=== PATIENT | female | born 2000 | race African-American/Black ===

== ENCOUNTER 2019-10-08 17:21 | Emergency (ER) | payer OTHER, SELFPAY ==
[2019-10-08 17:30] VITALS: BP 114/63; PULSE 83; RESP 19; TEMP 37.6; O2SAT 100
--- NOTE | 2019-10-08 17:38 | ED.GENADULT ---
HPI - General Adult General Chief complaint: Urogenital-Female Stated complaint: vaginal issues Time Seen by Provider: 10/08/19 17:38 Source: patient and RN notes reviewed Mode of arrival: ambulatory Limitations: no limitations History of Present Illness HPI narrative: This is a 19 years old female presents to the office for an evaluation of possible yeast infection. Onset about three weeks ago with creamy discharge; without odor. Associated with vaginal itchiness. Her DIRECTOR CAREER SERVICES prescribed her vaginal cream for yeast; which has tried and did not seem to help. She also reports that her cervix/vaginal feels swollen when she tried to insert nuvaRing; that same day; she noticed she passed blood when she has bowel movement. Denies history of hemorroid; but admits to history of severe constipation in the past. Denies concern for STI; state she has not sex for the last two month. Denies douche or taking bathe. Admits to history of recurrent yeast infection. Related Data Home Medications Medication Instructions Recorded Confirmed etonogestrel-ethinyl estradiol 1 vag ring VAGINAL DIRECTED 10/08/19 10/08/19 Allergies Allergy/AdvReac Type Severity Reaction Status Date / Time No Known Allergies Allergy Unknown Verified 10/08/19 17:24 Review of Systems Review of Systems: Narrative: CONSTITUTIONAL: Denies fever ENT: Denies congestion or sore throat CARDIOVASCULAR: Denies chest pain RESPIRATORY: Denies dyspnea, wheezing. Reports a little cough contribute to cold weather GASTROINTESTINAL: Denies abdominal pain, nausea, vomiting, diarrhea. GENITOURINARY: Denies urinary symptoms include urgency, frequency or burning SKIN: Denies rash/vaginal lesions MUSCULOSKELETAL: Denies acute back pain NEUROLOGIC: Denies lightheaded PMFSH Past Medical History Medical History Anemia Asthma Chlamydia Constipation PID (acute pelvic inflammatory disease) Syncopal episodes Last one 2 years ago Surgical History Surgical History No history of previous surgery Social History Social History Smoking status: Never smoker Gender identity (if verbalized by the patient): Female Comments At time of signature, I agree with nursing past medical, surgical, social and family history. There is no relevant family history pertinent to the presenting complaint. Exam Narrative: Exam Narrative: GENERAL: This is a well-nourished, well-developed patient, in no apparent distress. CARDIOVASCULAR: Regular rate and rhythm without murmurs, gallops, or rubs. RESPIRATORY: Clear to auscultation. Breath sounds equal bilaterally. No wheezes, rales, or rhonchi. GASTROINTESTINAL: Abdomen soft, non-tender, nondistended. Bowel sounds are active. No hepato-splenomegaly, or palpable masses. No guarding. NEURO: awake, alert, and oriented to person, place and time. There were no obvious focal neurologic abnormalities. 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
== END 2019-10-08 18:12 | disposition home or self-care (01) ==
PROVIDERS: Emergency Provider Nurse Practitioner
DX: N76.0 Acute vaginitis (principal); J45.909 Unspecified asthma, uncomplicated
CPT/HCPCS: 99214; G0463

== ENCOUNTER 2020-04-01 11:10 | Emergency (ER) | payer SELFPAY ==
[2020-04-01 11:14] VITALS: BP 110/76; PULSE 73; RESP 12; TEMP 37.2; O2SAT 100
--- NOTE | 2020-04-01 11:18 | ED.FEMALEGU ---
HPI - Female Genitourinary General Chief complaint: FINANCIAL AID COORDINATOR Stated complaint: rash/vaginal issues Time Seen by Provider: 04/01/20 11:22 Source: patient and RN notes reviewed Mode of arrival: ambulatory Limitations: no limitations History of Present Illness HPI Narrative: 20-year-old female presents with concern for vaginal yeast infection. Also reports an area on her back that she is concern for ringworm. Report frequent yeast infections. Reports she is recently been tested for STDs, all which were negative. Denies any current concern for unprotected sex or exposure to STDs. Denies any dysuria, hematuria, frequency, urgency, back pain, fever, abdominal pain. Reports vaginal itching and white vaginal discharge. Reports a small itchy area on her back. MD elicited complaint: genital itching and other (Rash) Related Data Allergies Allergy/AdvReac Type Severity Reaction Status Date / Time No Known Allergies Allergy Unknown Verified 10/08/19 17:24 Review of Systems Review of Systems: Narrative: CONSTITUTIONAL: Denies malaise, chills, sweats, or fever. CARDIOVASCULAR: Denies chest pain, palpitations, or edema. RESPIRATORY: Denies cough or dyspnea. GASTROINTESTINAL: Denies abdominal pain, nausea, vomiting, diarrhea GENITOURINARY: Denies dysuria or hematuria. Reports vaginal itching, white vaginal discharge SKIN: Reports small rash on the mid back MUSCULOSKELETAL: Denies myalgia. NEUROLOGIC: Denies headache.PSYCHIATRIC: Denies anxiety or depression. All systems reviewed & are unremarkable except as noted in HPI and below PMFSH Social History Social History Smoking status: Never smoker Gender identity (if verbalized by the patient): Female Comments At time of signature, agree with nursing past medical, surgical, social and family history. There is no relevant family history pertinent to the presenting complaint Exam Narrative: Exam Narrative: GENERAL: Well-appearing, well-nourished, and in no acute distress. HEAD: Normocephalic EYES: PERRLA, conjunctivae clear ENT: Mucous membranes moist. NECK: Supple. CHEST: No respiratory distress. Speaks in full sentences. HEART: Regular rate and rhythm. ABDOMEN: Soft, nontender, nondistended, normal active bowel sounds, no palpable masses. SKIN: Warm, dry. Annular patch of plaque consistent with tinea noted to the mid back NEURO: Alert and oriented x3. PSYCH: Normal mood and affect : External Female Exam: other (Excoriation, thick white discharge noted) Course Course Emergency Course: Patient is aware of diagnosis, understands and agrees to treatment plan. Anticipatory guidance given. Patient agrees to follow-up as directed and is aware of reasons to seek care at the emergency department. Portions of this record may have been created with voice recognition software Vital Signs Vital signs: Vital Signs Temperature 99.0 F 04/01/20 11:14 Pulse Rate 73 04/01/20 11:14 Respiratory Rate 12 04/01/20 11:14 Blood Pressure 110/76 04/01/20 11:14 Pulse Oximetry 100 04/01/20 11:14 Temperature 99.0 F 04/01/20 11:14 Pulse Rate 73 04/01/20 11:14 Respiratory Rate 12 04/01/20 11:14 Blood Pressure 110/76 04/01/20 11:14 Pulse Oximetry 100 04/01/20 11:14 Reviewed. MDM - Female Genitourinary MDM Narrative Medical decision making narrative: Exam findings show no acute concerns or changes; patient is non-toxic appearing and is in no distress. Patient is appropriate for outpatient treatment and follow-up. Differential Diagnosis Differential diagnosis: Likely urinary tract infection, bacterial vaginosis, trichomoniasis, vaginitis and other (Candidiasis) Critical Care Time Critical Care Time Critical Care Time: No Discharge Plan Discharge Clinical Impression: Vaginal itching, Tinea corporis Patient Disposition: Home, Self-Care Condition: Stable Instructions: Tinea Corporis (ED), Yeast Infe
== END 2020-04-01 11:41 | disposition home or self-care (01) ==
PROVIDERS: Emergency Provider Nurse Practitioner
DX: B35.4 Tinea corporis (principal); N89.8 Other specified noninflammatory disorders of vagina
CPT/HCPCS: 99213; G0463

== ENCOUNTER 2021-08-03 15:11 | Emergency (ER) | payer OTHER, SELFPAY ==
[2021-08-03 15:29] VITALS: BP 110/57; PULSE 83; RESP 16; TEMP 36.4; O2SAT 100
--- NOTE | 2021-08-03 16:44 | ED.FEMALEGU ---
HPI - Female Genitourinary General Chief complaint: Urogenital-Female Stated complaint: pos yeast inf Source: patient Mode of arrival: ambulatory Limitations: no limitations History of Present Illness HPI Narrative: Patient is a 21-year-old female who presents complaining of yeast infection. She reports irritation and discharge. She reports burning with urination. She denies , denies STD exposure. She denies pelvic pain or fever. Related Data Home Medications Medication Instructions Recorded Confirmed No Home Medications 08/03/21 08/03/21 Allergies Allergy/AdvReac Type Severity Reaction Status Date / Time No Known Allergies Allergy Unknown Verified 08/03/21 15:51 Review of Systems Review of Systems: CONSTITUTIONAL: Denies fever, chills, or sweats. EYES: Denies visual changes, redness, or discharge. ENT: Denies rhinorrhea, congestion, sore throat, or otalgia. CARDIOVASCULAR: Denies chest pain, palpitations, or edema. RESPIRATORY: Denies cough or dyspnea. GASTROINTESTINAL: Denies abdominal pain, nausea, vomiting, or diarrhea. GENITOURINARY: Reports vaginal discharge and burning with urination SKIN: Denies rash or itching. MUSCULOSKELETAL: Denies back pain, joint pain, or myalgia. NEUROLOGIC: Denies headache, numbness, dizziness, or weakness. PSYCHIATRIC: Denies anxiety or depression. [facility] Past Medical History Medical History (Updated 08/03/21 @ 16:49 by BETHEL Lyons) Anemia Asthma Chlamydia Constipation PID (acute pelvic inflammatory disease) Syncopal episodes Last one 2 years ago Surgical History Surgical History No history of previous surgery Social History Social History Smoking status: Never smoker Alcohol use details: Occasionally drinks Gender identity (if verbalized by the patient): Female Comments At the time of signature, I have reviewed and agree with nursing past medical, surgical, social, and family history unless otherwise noted. Please see nursing chart for further information. There is no relevant family history pertinent to the presenting complaint. Exam Narrative: GENERAL: Well-appearing, well-nourished, and in no acute distress. HEAD: Normocephalic, atraumatic. EYES: EOMI. No redness or drainage. Conjunctiva are normal. ENT: Mucous membranes pink and moist. CHEST: No respiratory distress. HEART: Regular rate and rhythm. No murmur appreciated. Normal peripheral pulses. : Deferred per patient EXTREMITIES: Normal range of motion. No edema. SKIN: Warm, dry, no rash. NEURO: No focal deficits. Alert and oriented x3. Gait steady. PSYCH: Normal affect. No signs of depression or anxiety. Course Vital Signs Vital signs: Vital Signs Temperature 36.4 C 08/03/21 15:29 Pulse Rate 83 08/03/21 15:29 Respiratory Rate 16 08/03/21 15:29 Blood Pressure 110/57 L 08/03/21 15:29 Pulse Oximetry 100 08/03/21 15:29 Temperature 36.4 C 08/03/21 15:29 Pulse Rate 83 08/03/21 15:29 Respiratory Rate 16 08/03/21 15:29 Blood Pressure 110/57 L 08/03/21 15:29 Pulse Oximetry 100 08/03/21 15:29 Reviewed MDM - Female Genitourinary MDM Narrative Medical decision making narrative: Patient UA is negative for UTI, discussed most likely yeast infection after reporting results. Patient declined pelvic exam at this time and reports that she is not at risk for STDs. Patient is aware of the the risks of declining pelvic exam. Patient is aware of the need to follow-up with her PCP or [facility] if symptoms persist. Differential Diagnosis Differential diagnosis: Likely other (UTI, BV, STD, yeast infection) Critical Care Time Critical Care Time Critical Care Time: No Discharge Plan Discharge Clinical Impression: Vaginal yeast infection Patient Disposition: Home, Self-Care Condition: Stable Instructions: Antibiotic Form, Yeast I
== END 2021-08-03 16:50 | disposition home or self-care (01) ==
PROVIDERS: Emergency Provider Nurse Practitioner
DX: B37.3 Candidiasis of vulva and vagina (principal); J45.909 Unspecified asthma, uncomplicated
CPT/HCPCS: 81003; 99212; G0463

== ENCOUNTER 2021-08-14 16:17 | Emergency (ER) | payer OTHER, SELFPAY ==
[2021-08-14 16:24] VITALS: BP 108/71; PULSE 69; RESP 16; TEMP 36.2; O2SAT 99
--- NOTE | 2021-08-14 16:34 | ED.FEMALEGU ---
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 Reports she was treated for a yeast infection on August 03 and had improvement in symptoms, reports she had intercourse using a latex condom and afterwards began having vaginal itching again. She denies any discharge, foul odor, lesions, abdominal pain, nausea, vomiting. Reports dryness with intercourse. She reports she is in a monogamous relationship and does not have any known exposure to STDs. She reports she is only concerned because the itching returned after intercourse. MD elicited complaint: genital itching Related Data Allergies Allergy/AdvReac Type Severity Reaction Status Date / Time No Known Allergies Allergy Unknown Verified 08/14/21 16:43 Review of Systems Review of Systems: CONSTITUTIONAL: Denies malaise, chills, sweats, or fever. CARDIOVASCULAR: Denies chest pain, palpitations, or edema. RESPIRATORY: Denies cough or dyspnea. GASTROINTESTINAL: Denies abdominal pain, nausea, vomiting, diarrhea GENITOURINARY: Denies dysuria, frequency, urgency, suprapubic pressure. Denies flank pain or hematuria. Denies abnormal vaginal discharge, odor SKIN: Reports vaginal itching MUSCULOSKELETAL: Denies back pain or myalgia. All systems reviewed & are unremarkable except as noted in HPI and below PMFSH Past Medical History Medical History (Updated 08/14/21 @ 16:58 by Jessica Riley NP) Anemia Asthma Chlamydia Constipation PID (acute pelvic inflammatory disease) Syncopal episodes Last one 2 years ago Surgical History Surgical History No history of previous surgery Social History Social History Smoking status: Never smoker Alcohol use details: Occasionally drinks Gender identity (if verbalized by the patient): Female Comments At time of signature, agree with nursing past medical, surgical, social and family history. There is no relevant family history pertinent to the presenting complaint Exam Narrative: GENERAL: Well-appearing, well-nourished, and in no acute distress. HEAD: Normocephalic. EYES: PERRLA, conjunctivae clear. NECK: Supple. No lymphadenopathy CHEST: Clear to auscultation. No respiratory distress. HEART: Regular rate and rhythm. SKIN: Warm, dry, no rash. NEURO: Alert and oriented x3. PSYCH: Normal mood and affect Course Course Emergency Course: Discussed treatment options for STI testing, patient chooses to not be treated at this time because she does not have any known exposure, she understands that if any test come positive she may need to return for treatment. Patient is aware of diagnosis, understands and agrees to treatment plan. Anticipatory guidance given. Patient agrees to follow-up as directed and is aware of reasons to seek care at the emergency department. Portions of this record may have been created with voice recognition software Level of Care: Express Care Visit Vital Signs Vital signs: Vital Signs Temperature 97.2 F L 08/14/21 16:24 Pulse Rate 69 08/14/21 16:24 Respiratory Rate 16 08/14/21 16:24 Blood Pressure 108/71 08/14/21 16:24 Pulse Oximetry 99 08/14/21 16:24 Temperature 97.2 F L 08/14/21 16:24 Pulse Rate 69 08/14/21 16:24 Respiratory Rate 16 08/14/21 16:24 Blood Pressure 108/71 08/14/21 16:24 Pulse Oximetry 99 08/14/21 16:24 Reviewed. MDM - Female Genitourinary MDM Narrative Medical decision making narrative: Exam findings and UA show no acute concerns or changes; patient is non-toxic appearing and is in no distress. Patient is appropriate for outpatient treatment and follow-up. Catherinea
== END 2021-08-14 17:04 | disposition home or self-care (01) ==
PROVIDERS: Emergency Provider Nurse Practitioner
DX: N89.8 Other specified noninflammatory disorders of vagina (principal); J45.909 Unspecified asthma, uncomplicated
CPT/HCPCS: 81003; 81025; 87491; 87591; 87661; 99214; G0463

== ENCOUNTER 2024-09-08 20:35 | Emergency (ER) | payer OTHER, SELFPAY ==
--- OUTSIDE RECORDS SUMMARY | 2024-09-08 20:37 | XMS_ITS | Referral Summary ---
Author Organization [facility] Address [address] [place] [address] Care Team Providers Care Backhaul Driver Name Role Phone Mihir Panchal MD Unavailable [phone] Renee Jaeger MD Primary Care Provider [phone] Allergies No known active allergies Medications acetaminophen 500 mg capsule Take 2 capsules (1,000 mg total) by mouth every 6 (six) hours as needed for pain 60 tablet 4 Active ibuprofen (ADVIL,MOTRIN) 600 mg tabletIndicatio ns:Cramps Take 1 tablet (600 mg total) by mouth every 6 (six) hours as needed for pain 60 tablet 4 Active polyethylene glycol (MIRALAX) 17 gram/dose bulk powder Take 17 g by mouth daily as needed (constipation) 238 g 4 Active cyclobenzaprine (FLEXERIL) 5 mg tabletIndicatio ns:Encounter for routine follow-up Take 1 tablet (5 mg total) by mouth 3 (three) times a day as needed for muscle spasms 30 tablet 4 Active Additional Information Patient not taking.Reported on 04/01/2024 Active Problems Problem Noted Date Diagnosed Date Chronic idiopathic constipation 04/01/2024 Assessment & Plan (04/11/2024 9:14 AM CDT): Chronic Cont miralax Vitamin D deficiency 04/01/2024 Assessment & Plan (04/11/2024 9:14 AM CDT): Chronic Follow vit d level Well adult exam 04/01/2024 Myofascial pain 12/25/2023 Granulation tissue 12/25/2023 pain 12/04/2023 Granulation tissue at obstetrical laceration sit e 12/04/2023 care and examination 11/07/2023 Pelvic floor dysfunction 11/07/2023 depression 11/07/2023 Endometritis 10/03/2023 care following vaginal delivery 09/27 Overview (10/03/2023): # ID: Afebrile since 0100 on 10/02. #Endometritis: Readmission on 10/02. Presented with fundal tenderness and fever in [facility]. WBC 10.2. RVP negative. S/p gent/clinda for 24 hours. # Heme: EBL 350 mL. Hemodynamically stable. # CV/Pulm: Vital signs stable, within normal limits. # GI/: Tolerating PO. Voiding spontaneously. #Chronic Constipation: continue miralax daily scheduled and colace BID # Pain: Controlled with above regimen. # Post DVT prophylaxis: The patient has the following MAJOR risk factors none and the following MINOR risk factors BMI 30-39. SCDs ordered for VTE prophylaxis. # MOC: Declines s/p counseling # MOF: . No s/s mastitis on exam yesterday. Exam stable today. Discussed with Dr. Su breast care for likely clogged duct. consulted. # Disposition: Follow up tasked to [facility]. Discharge today. Excessive growth affec ting management of in third trimester 09/09/2023 Overview (09/23/2023): 08/26 US : 34w3d.1. Vertex presentation. 2. Interval growth is appropriate. EFW 88%, AC 96% Normal 3hr GTT 09/23: 3991g (94%) Counseled on large fetus and plan for induction at 39w Class 1 obesity 07/01/2023 Overview (09/24/2023): - BMI 30 at IOB visit. - S/p counseling. Plan: [x] Serial growth ultrasounds q4 weeks starting at 24 weeks, 74%ile 07/29. AC 96%, EFW 88% 08/26/23. --> on 09/23 measuring 3991g 94% Other constipation 05/06/2023 Overview (06/03/2023): - Chronic history of constipation w/ history of hemorrhoids in the past - Tried Colace this with no significant improvement - Currently having BM x1 per week that is hard in consistency at IOB visit - Slightly improved w/ miralax BID, now having bowel movement nearly daily Plan: - Continue miralax up to BID - Continue high fiber diet and dietary changes, such as prune juice - May consider additional agents at future visits if not improved Iron deficiency anemia 03/28/2023 Overview (09/23/2023): - Followed by outside hematology (Dr. Mcqueen) - Etiology likely secondary to menorrhagia per review of records. - Now s/p iron infusion cycle x3, most recently s/p IV infusion x4 on 05/01/23 - Hg 03/2023 13.4 - Hb 08/13/23 12.3 Plan: - Check CBC qtrimester, completed - Will continue follow up with hematology regarding further recommendations this . Assessment & Plan (04/11/2024 9:14 AM CDT): Chronic Recheck cbc and iron level Encounter for supervision of normal Overview (09/24/2023): *[id number]* 1st Trimester: [x] Dating Criteria: L=1 (10w3d) [x] Labs: in media tab - Rh pos, Ab neg, CBC wnl, Rubella immune, VZV immune, HIV NR, RPR NR, HepBSAg neg [x] GC/CT/Trich: neg/neg/neg [x] UCx: no growth [x] vitamins [x] Genetic Screening: LR NIPT, XX [x] CF/SMA carrier screening: declined [x] Pap: NILM 03/2022 [] EPDS: [x] ASA at 12 weeks N/A [x] DM screening: N/A [x] Feeding Preferences: benefits of discussed with patient 2nd Trimester: [x] Anatomy ultrasound: wnl on 05/21/23 [x] CBC/T&S/HIV/RPR [x] 1hr GTT (24-28wks): 165, 3 hour wnl 08/19/23 [x] Flu Shot (Apr-Jul): declined 07/01 [x] Tdap (27-36wks): declined [x] Rhogam (if Rh neg): NA [x] Childbirth classes discussed [x] education (colostrum, expected breast changes, plan for RTW) and breast pump ordered [x] Second trimester education packet 3rd Trimester: [x] CBC/HIV/RPR/T&S: 08/13/23 [x] GBS: pos 09/11, for penicillin intrapartum [] GC/CT/Trich (if indicated): [] Final discussion (S2S, Baby Friendly, LC Support, PP experience) [] Third trimester education packet Last visit: [x] Last clinic visit SVE: 50/-3 [x] IOL start agent: Pitocin, then AROM [x] Epidural: at some point [x] Consents signed: yes to procedure consent, will need blood consent signed day of Counseling: [x] Method of delivery: anticipate vaginal [] Bottle of CHG 4% and hand out provided @ 36wks (if planned) [x] Timing of delivery: IOL at 39wk [x] MOC: Declines [x] MOF: breast [] COVID-19 vaccine counseling [] education: completed in all 3 trimesters [] Electronic Development Technician: [] Car seat discussed [] PP depression counseling Assessment & Plan (09/17/2023 1:43 PM LINE CLOSER): - Discussed GBS positive and need for penicillin intrapartum - Given labor precautions and preeclampsia precautions Resolved Problems Problem Noted Date Diagnosed Date Resolved Date Bicornuate uterus 03/17/2023 07/01/2023 Overview (03/17/2023): Reported history of bicornuate uterus, but US from 2019 with no mention. US 03/12/2023 showing , in horn. Normal kidneys bilaterally. Discussed increased obstetric and risks with a uterine anomaly in . We discussed the increased risk for SAB, IUGR, malpresentation, and labor. Plan: [] Serial growth ultrasounds every 4 weeks secondary to risk of IUGR. [] Recommend close monitoring for signs and symptoms of labor as progresses. Immunizations Name Administration Dates Next Due Influenza, Unspecified 05/11/2023(Deferred: Aylin ent Refused) MMR 09/29/2023(Deferred: No longer n eeded - immune) Varicella 09/29/2023(Deferred: No longer n eeded - immune) Social History Tobacco Use Types Packs/Day Years Used Date Smoking Tobacco: Never Alcohol Use Standard Drinks/Week Comments Yes 1 (1 standard drink = 0.6 oz pur e alcohol) [facility] Mettlities Answer Date Recorded In the past 12 months has [employer], gas, oil, or water [employer] threatened to shut off services in your home? No 10/02/2023 Social Connection and Isolat ion Panel [NHANES] Answer Date Recorded In a typical week, how many times do you talk on the phone with family, friends, or neighbors? More than three times a week 10/02/2023 How often do you get togethe r with friends or relatives? More than three times a week 10/02/2023 How often do you attend chur ch or temple services? Never 10/02/2023 Do you belong to any clubs o r organizations such as rastafarian groups, unions, fraternal or athletic groups, or school groups? No 10/02/2023 How often do you attend meet ings of the clubs or organizations you belong to? Never 10/02/2023 Are you , , di vorced, , never , or living with a partner? Living with partner 10/02/2023 AUDIT-C Answer Date Recorded Q1: How often do you have a drink containing alc ohol? Monthly or less 04/01/2024 Q2: How many drinks containi ng alcohol do you have on a typical day when you are drinking? 1 or 2 04/01/2024 Frequency of Binge Drinking Not on file 03/12 Overall Financial Resource Strain (CARDIA) Answe r Date Recorded How hard is it for you to pa y for the very basics like food, housing, medical care, and heating? Not hard at all 10/02/2023 PHQ-2 Answer Date Recorded PHQ-2 Total Score (If total score is 3 or more points, staff should administer the PHQ-9) 0 04/01/2024 Hunger Vital Sign Answer Date Recorded Within the past 12 months, y ou worried that your food would run out before you got the money to buy more. Never true 11/07/19 24 Within the past 12 months, t he food you bought just didn't last and you didn't have money to get more. Never true 11/07/2023 PRAPARE - Transportation Answer Date Re corded In the past 12 months, has l ack of transportation kept you from medical appointments or from getting medications? No 09/12 In the past 12 months, has l ack of transportation kept you from meetings, work, or from getting things needed for daily living? No 10/02/2023 Housing Stability Vital Sign Answer [place] e Recorded In the last 12 months, was t here a time when you were not able to pay the mortgage or rent on time? No 10/02/2023 In the last 12 months, how many places have you lived? 1 10/02/2023 In the last 12 months, was t here a time when you did not have a steady place to sleep or slept in a mcc (including now)? No 10/02/2023 [place] Depression Scale Answer Date Recorded [place] Depression Scale Total 6 12/25/2023 The thought of harming myself has occurred to me . Never 12/25/2023 Personal Safety Answer Date Recorded Have you ever been in or are you currently in a harmful physical or emotional relationship or is someone making you feel afraid or unsafe? Denies 10/05/2023 Comments Unknown Sex and Gender Information Value Date Recorded Sex Assigned at Not on file Legal Sex Female 9:20 AM CDT Gender Identity Female 06/13/2020 2:47 PM LINE CLOSER Sexual Orientation Not on file Last Filed Vital Signs Vital Sign Reading Time Taken Comments Blood Pressure 106/68 04/01/2024 10:17 AM CDT Pulse 75 04/01/2024 10:17 AM CDT Temperature 36.3 ??C (97.4 ??F) 04/01/2024 10:17 AM C DT Respiratory Rate 18 04/01/2024 10:17 AM CDT Oxygen Saturation 99% 04/01/2024 10:17 AM CDT Inhaled Oxygen Concentration - - Weight 75.8 kg (167 lb) 04/01/2024 10:17 AM CDT Height 170.2 cm (5' 7 ) 04/01/2024 10:17 AM CDT Body Mass Index 26.16 04/01/2024 10:17 AM CDT Plan of Treatment Not on file Insurance [facility] AETNA [facility] Advance Directives For more information, please contact: [phone] * Full Code (Latest Code Status on File) Date Activated Date Inactivated Comments 10/02/2023 4:19 AM 10/03/2023 6:39 PM * Full Code Date Activated Date Inactivated Comments 09/27/2023 5:06 PM 09/29/2023 5:45 PM * Full Code Date Activated Date Inactivated Comments 09/27/2023 8:36 AM 09/27/2023 5:06 PM Full CPR in case of cardiopulmonary arrest Care Teams Backhaul Driver Relationship Specialty Start Date End Date Renee Jaeger MD [address] [facility] [address] [place] [address] PCP - General Family Medicine 04/01/24 Mihir Panchal MD [address] [facility] MEDICAL ONCOLOGY, [address] [address] Medical Oncologist/Insurance Territory Manager Hematology and Oncology 02/25/23
--- OUTSIDE RECORDS SUMMARY | 2024-09-08 20:37 | XMS_ITS | Encounter Summary ---
Author Organization [facility] Healthcare Address [address] [place] [address] Care Team Providers Care Adult Education Instructor Name Role Phone No, Physician Primary Care Provider [phone] Mihir Panchal MD Unavailable [phone] Unknown, Notinfile Primary Care Provider Unavail able Renee Jaeger MD Primary Care Provider [phone] Encounter Details Date Type Department Care Team (Late st Contact Info) Description 08/01/2020 Telephone [facility] [address] [place] [address] Lindsay Demarco RDMS Social History Tobacco Use Types Packs/Day Years Used Date Smoking Tobacco: Never Assessed Comments Unknown Sex and Gender Information Value Date Recorded Sex Assigned at Not on file Legal Sex Female 9:20 AM CDT Gender Identity Female 06/13/2020 2:47 PM YIELD LOSS INSPECTOR Sexual Orientation Not on file documented as of this encounter Plan of Treatment Not on file documented as of this encounter Visit Diagnoses Not on filedocumented in this encounter Additional Health Concerns Infection Onset Date Last Indicated Resolved Time COVID: Suspected 10/02/2023 10/02/2023 10/02/2023 3:09 AM YIELD LOSS INSPECTOR Rhino/Enterovirus 10/05/2023 10/05/2023 10/12/2023 3:05 AM YIELD LOSS INSPECTOR documented as of this encounter Care Teams Adult Education Instructor Relationship Specialty Start Date End Date No, Physician PCP - General 06/13/20 10/05/23 Unknown, Notinfile PCP - General 10/06/23 03/31/24 Renee Jaeger MD [address] [facility] [address] [place] [address] PCP - General Family Medicine 04/01/24 Mihir Panchal MD [address] [facility] MEDICAL ONCOLOGY, [facility] [address] [place] [address] Medical Oncologist/Intensive Care Unit Nurse Hematology and Oncology 02/25/23 documented as of this encounter
--- OUTSIDE RECORDS SUMMARY | 2024-09-08 20:37 | XMS_ITS | Clinical Summary ---
Author Organization [facility] Address [address] [place] [address] Care Team Providers Care Stack Supervisor Name Role Phone Mihir Panchal MD Unavailable [phone] Renee Jaeger MD Primary Care Provider [phone] Allergies No known active allergies Medications acetaminophen [...] Presented with fundal tenderness and fever in [facility]. WBC 10.2. RVP negative. S/p gent/clinda for [...] consulted. # Disposition: Follow up tasked to [facility]. Discharge today. Excessive growth affec ting [...] Encounter for supervision of normal Overview (09/24/2023): *[id number]* 1st Trimester: [x] Dating Criteria: L=1 (10w3d) [...] education: completed in all 3 trimesters [] Director Card: [] Car seat discussed [] PP depression counseling Assessment & Plan (09/17/2023 1:43 PM POST DOCTORAL FELLOW): - Discussed GBS positive and need for [...] 09/29/2023(Deferred: No longer n eeded - immune) Medical History Medical History Date Comments Asthma Family History Medical History Relation Name Comments Diabetes type I Mother Hypertension Mother Relation Name Status Comments Father Alive Mother Alive Social History Tobacco Use Types Packs/Day Years Used Date Smoking Tobacco: Never Alcohol Use Standard Drinks/Week Comments Yes 1 (1 standard drink = 0.6 oz pur e alcohol) [facility] Utilities Answer Date Recorded In the past 12 months has [employer], gas, oil, or water [employer] threatened to shut off services in your [...] week 10/02/2023 How often do you attend [facility] or sikhism services? Never 10/02/2023 Do you belong to any clubs o r organizations such as mormonism groups, unions, fraternal or athletic groups, or [...] place to sleep or slept in a skilled nursing (including now)? No 10/02/2023 [place] Depression Scale Answer Date Recorded [place] Depression Scale Total 6 12/25/2023 The thought [...] CDT Gender Identity Female 06/13/2020 2:47 PM POST DOCTORAL FELLOW Sexual Orientation Not on file Obstetrics History Para Term AB IAB SAB Ectopic Multiple Livin g Live Births 2 1 1 1 0 1 1 Date Outcome GA Total Labor Labor/2nd/3rd Weight Sex Type Anes PTL Jordyn A1 A5 Name Clin AB 2023 Term 39w 0d 6h 57m 6h 41m/0h 14m/0h 02m 3.99 kg (8 lb 12.7 oz) F Vagina l None N Livin g 7 9 Daniel hui, Zoraida vega MD Complications:None Delivery Location:[facility] Main C ampus ([facility] 58LD) Last Filed Vital Signs Vital Sign Reading [...] 04/01/2024 10:17 AM CDT Plan of Treatment Health Maintenance Due Date Last Done Comments Cervical Cancer Screening 1999 Hepatitis C Screening 1999 DTaP/Tdap/Td Vaccine (1 - Tdap) 2010 Varicella Vaccines (1 of 2 - 13+ 2-dose series) 2012 HPV Vaccines (1 - 3-dose series) 2014 Hepatitis B Screening 2017 Regular Well Visit/Exam 18-64 2017 Influenza Vaccine (#1) 2024 Depression Screening 04/01/2025 04/01/2024, 12/25/2023, 10/03/2023, Additional history exists Pneumococcal vaccine <65 Aged Out No longer eligible based on patient's age to complete this topic Insurance AETNA [facility] AETNA [facility] AETNA [facility] Advance Directives For more information, please contact: [phone] * Full Code (Latest Code Status on File) Date Activated Date Inactivated Comments 10/02/2023 4:19 AM 10/03/2023 6:39 PM * Full Code Date Activated Date Inactivated Comments 09/27/2023 5:06 PM 09/29/2023 5:45 PM * Full Code Date Activated Date Inactivated Comments 09/27/2023 8:36 AM 09/27/2023 5:06 PM Full CPR in case of cardiopulmonary arrest Care Teams Stack Supervisor Relationship Specialty Start Date End Date Renee Jaeger MD [address] [facility] [address] [place] [address] PCP - General Family Medicine 04/01/24 Mihir Panchal MD [address] [facility] MEDICAL ONCOLOGY, [address] [address] Medical Oncologist/Well Drill Operator Cable Tool Hematology and Oncology 02/25/23
--- OUTSIDE RECORDS SUMMARY | 2024-09-08 20:37 | XMS_ITS | Clinical Summary ---
Author Organization [facility] Address [address] [place] [address] Phone Care Team Providers Care Substitute Nurse Name Role Phone Eddie Marley APRN, DIET SUPERVISOR, Aarti Primary Care Provide r Allergies No known active allergies Medications Vit-Fe Fumarate-FA ( multivitamin) 28-0.8 MG Tablet TAKE 1 TABLET BY MOUTH 01/30/2023 Active Active Problems Problem Noted Date Diagnosed Date and not yet delivered in [facility] er 03/04/2023 Menorrhagia with regular cycle 11/12/2019 Iron deficiency anemia 11/05/2019 Family History Medical History Relation Name Comments Diabetes Maternal Grandfather Hypertension Maternal Grandmother Diabetes Mother Hypertension Mother Hypertension Sister Relation Name Status Comments Maternal Grandfather Maternal Grandmother Mother Alive Sister Social History Tobacco Use Types Packs/Day Years Used Date Smoking Tobacco: Never Smokeless Tobacco: Never Alcohol Use Standard Drinks/Week Comments Not Currently 0 (1 standard drink = 0.6 oz pur e alcohol) ocassionally Comments Unknown Sex and Gender Information Value Date Recorded Sex Assigned at Not on file Legal Sex Female 1:51 PM PHOTOSTAT OPERATOR HELPER Gender Identity Not on file Sexual Orientation Not on file Last Filed Vital Signs Vital Sign Reading Time Taken Comments Blood Pressure 104/67 05/01/2023 11:26 AM CDT Pulse 80 05/01/2023 11:26 AM CDT Temperature 35.8 ??C (96.4 ??F) 05/01/2023 1 1:26 AM CDT Respiratory Rate 16 05/01/2023 11:2 6 AM CDT Oxygen Saturation 99% 05/01/2023 11: 26 AM CDT Inhaled Oxygen Concentration - - Weight 76.6 kg (168 lb 14.4 oz) 03/04/2023 3:47 PM CDT Height 162.6 cm (5' 4 ) 03/04/2023 3:47 PM CDT Body Mass Index 28.99 03/04/2023 3:47 PM CDT Plan of Treatment Health Maintenance Due Date Last Done Comments TdaP Immunization 1999 Human Papillomavirus (HPV) Immunization (1 - 3-dose series) 2014 Hepatitis B Immunization (1 of 3 - 19+ 3-dose series) 2018 Pap Smear 2020 Influenza Immunization (#1) 2024 SARS-COV-2 Immunization ( - 2023- season) 2024 Respiratory Syncytial Virus (RSV) Immunization (Adult) (1 - 1-dose 75+ series) 2074 Hepatitis C Virus (HCV) Screening Completed 020 Meningococcal Immunization (ACWY) Aged Out No longer eligible based on patient's age to complete this topic Pneumococcal Immunization Combined Aged Out No longer eligible based on patient's age to complete this topic Rotavirus Immunization Aged Out No lo nger eligible based on patient's age to complete this topic Procedures Procedure Name Priority Date/Time Associated Diagnosis Comments HEPATITIS C ANTIBODY Routine 08/16/2019 from Last 3 Months or Most Recently Relevant to Health Maintenance Results * HEPATITIS C ANTIBODY (08/16/2019) Blood us Aarti Morgan V, PLASTIC MACHINE OPERATOR, DIET SUPERVISOR CHEMISTRY ORDERABLES Final Result from Last 3 Months or Most Recently Relevant to Health Maintenance [place] [address] MEDICAID AETNA [facility] Care Teams Substitute Nurse Relationship Specialty Start Date End Date Aarti Morgan V, PLASTIC MACHINE OPERATOR, DIET SUPERVISOR [address] [place] [address] , [address] [address] PCP - General Advanced Practice Nurse 09/23/19
[2024-09-08 21:00] VITALS: BP 112/69; PULSE 83; RESP 19; TEMP 36.5; O2SAT 99
--- OUTSIDE RECORDS SUMMARY | 2024-09-09 00:32 | XMS_ITS | Encounter Summary ---
Author Organization [facility] Healthcare Address [address] [place] [address] Care Team Providers Care Brine Process Operator Name Role Phone No, Physician Primary Care Provider [phone] Mihir Panchal MD Unavailable [phone] Unknown, Notinfile Primary Care Provider Unavail able Renee Jaeger MD Primary Care Provider [phone] Encounter Details Date Type Department Care Team (Late st Contact Info) Description 08/01/2020 Telephone [facility] [address] [place] [address] Lindsay Demarco RDMS Social History Tobacco Use Types Packs/Day Years Used Date Smoking Tobacco: Never Assessed Comments Unknown Sex and Gender Information Value Date Recorded Sex Assigned at Not on file Legal Sex Female 9:20 AM CDT Gender Identity Female 06/13/2020 2:47 PM TRAVEL REGISTERED NURSE ICU Sexual Orientation Not on file documented as of this encounter Plan of Treatment Not on file documented as of this encounter Visit Diagnoses Not on filedocumented in this encounter Additional Health Concerns Infection Onset Date Last Indicated Resolved Time COVID: Suspected 10/02/2023 10/02/2023 10/02/2023 3:09 AM TRAVEL REGISTERED NURSE ICU Rhino/Enterovirus 10/05/2023 10/05/2023 10/12/2023 3:05 AM TRAVEL REGISTERED NURSE ICU documented as of this encounter Care Teams Brine Process Operator Relationship Specialty Start Date End Date No, Physician PCP - General 06/13/20 10/05/23 Unknown, Notinfile PCP - General 10/06/23 03/31/24 Renee Jaeger MD [address] [facility] [address] [place] [address] PCP - General Family Medicine 04/01/24 Mihir Panchal MD [address] [facility] MEDICAL ONCOLOGY, [facility] [address] [place] [address] Medical Oncologist/Geophysical Manager Hematology and Oncology 02/25/23 documented as of this encounter
--- OUTSIDE RECORDS SUMMARY | 2024-09-09 00:32 | XMS_ITS | Referral Summary ---
Author Organization [facility] Address [address] [place] [address] Care Team Providers Care Reimbursement Consultant Name Role Phone Mihir Panchal MD Unavailable Renee Jaeger MD Primary Care Provider [phone] Allergies No known active allergies Medications acetaminophen [...] Presented with fundal tenderness and fever in [facility]. WBC 10.2. RVP negative. S/p gent/clinda [...] consulted. # Disposition: Follow up tasked to [facility]. Discharge today. Excessive growth affec ting management [...] Encounter for supervision of normal Overview (09/24/2023): *[id number]* 1st Trimester: [x] Dating Criteria: L=1 (10w3d) [...] education: completed in all 3 trimesters [] Rivet Sticker: [] Car seat discussed [] PP depression counseling Assessment & Plan (09/17/2023 1:43 PM CORPORATE RESPONSIBILITY OFFICER): - Discussed GBS positive and need for [...] drink = 0.6 oz pur e alcohol) [facility] ARIities Answer Date Recorded In the past 12 months has [employer], gas, oil, or water [employer] threatened to shut off services in [...] often do you attend chur ch or sabianism services? Never 10/02/2023 Do you belong to any clubs o r organizations such as buddhism groups, unions, fraternal or athletic groups, or [...] place to sleep or slept in a prison (including now)? No 10/02/2023 Tor[place] Depression Scale Answer Date Recorded [place] Depression Scale Total 6 12/25/2023 The thought [...] CDT Gender Identity Female 06/13/2020 2:47 PM CORPORATE RESPONSIBILITY OFFICER Sexual Orientation Not on file Last Filed [...] Plan of Treatment Not on file Insurance [facility] A[employer]NA [facility] Advance Directives For more information, please contact: [phone] * Full Code (Latest Code Status on File) Date Activated Date Inactivated Comments 10/02/2023 4:19 AM 10/03/2023 6:39 PM * Full Code Date Activated Date Inactivated Comments 09/27/2023 5:06 PM 09/29/2023 5:45 PM * Full Code Date Activated Date Inactivated Comments 09/27/2023 8:36 AM 09/27/2023 5:06 PM Full CPR in case of cardiopulmonary arrest Care Teams Reimbursement Consultant Relationship Specialty Start Date End Date Renee Jaeger MD [address] [facility] [address] [place] [address] PCP - General Family Medicine 04/01/24 Mihir Panchal MD [address] [facility], [address] [address] Medical Oncologist/Food Service Utility Worker Hematology and Oncology 02/25/23
--- OUTSIDE RECORDS SUMMARY | 2024-09-09 00:32 | XMS_ITS | Clinical Summary ---
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
--- OUTSIDE RECORDS SUMMARY | 2024-09-09 00:32 | XMS_ITS | Clinical Summary ---
Author Organization [facility] Address [address] [place] [address] Care Team Providers Care Director Of Product Design Name Role Phone Mihir Panchal MD Unavailable [phone] Renee Jaeger MD Primary Care Provider [phone] Allergies No known active allergies Medications acetaminophen [...] Presented with fundal tenderness and fever in [facility]. WBC 10.2. RVP negative. S/p gent/clinda for [...] consulted. # Disposition: Follow up tasked to [facility]. Discharge today. Excessive growth affec ting management [...] Encounter for supervision of normal Overview (09/24/2023): *[id number]* 1st Trimester: [x] Dating Criteria: L=1 (10w3d) [...] education: completed in all 3 trimesters [] Utility Operator: [] Car seat discussed [] PP depression counseling Assessment & Plan (09/17/2023 1:43 PM ADULT MANAGER): - Discussed GBS positive and need for [...] drink = 0.6 oz pur e alcohol) [facility] Utilities Answer Date Recorded In the past 12 months has [employer], gas, oil, or water [employer] threatened to shut off services in your [...] week 10/02/2023 How often do you attend [facility] or mormon services? Never 10/02/2023 Do you belong to any clubs o r organizations such as mandaen groups, unions, fraternal or athletic groups, or [...] place to sleep or slept in a senior living (including now)? No 10/02/2023 [place] Depression Scale Answer Date Recorded [place] Depression Scale Total 6 12/25/2023 The thought [...] CDT Gender Identity Female 06/13/2020 2:47 PM ADULT MANAGER Sexual Orientation Not on file Obstetrics History [...] Daniel hui, Zoraida vega MD Complications:None Delivery Location:[facility] Main C ampus ([facility] [address]) Last Filed Vital Signs Vital Sign [...] to complete this topic Insurance AETNA [facility] AETNA [facility] AETNA [facility] Advance Directives For more information, please contact: [phone] * Full Code (Latest Code Status on File) Date Activated Date Inactivated Comments 10/02/2023 4:19 AM 10/03/2023 6:39 PM * Full Code Date Activated Date Inactivated Comments 09/27/2023 5:06 PM 09/29/2023 5:45 PM * Full Code Date Activated Date Inactivated Comments 09/27/2023 8:36 AM 09/27/2023 5:06 PM Full CPR in case of cardiopulmonary arrest Care Teams Director Of Product Design Relationship Specialty Start Date End Date Renee Jaeger MD [address] [facility] [address] [place] [address] PCP - General Family Medicine 04/01/24 Mihir Panchal MD [address] [facility], [address] [address] Medical Oncologist/Marketing Communications Associate Hematology and Oncology 02/25/23
--- NOTE | 2024-09-09 00:39 | ED_ITS ---
HPI - Fever General Chief Complaint: Fever Stated Complaint: fever Time Seen by Provider: 09/09/24 00:11 Source: patient Mode of arrival: ambulatory Limitations: no limitations History of Present Illness HPI Narrative: This is a 24-year-old female who presents to the ED for chief complaint of fevers over the past couple of days. Patient states that she has had body aches and chills as well. States that her child has been sick with similar symptoms. He was just seen here today and tested positive for influenza. Denies chest pain, shortness of breath or any further complaints. Related Data Allergies Allergy/AdvReac Type Severity Reaction Status Date / Time No Known Allergies Allergy Unknown Verified 08/14/21 16:43 Review of Systems Review of Systems: All systems as dictated in [facility] Past Medical History Medical History (Updated 09/09/24 @ 00:43 by Kenrick Martinez PA-C) PID (acute pelvic inflammatory disease) Chlamydia Anemia Constipation Asthma Syncopal episodes Last one 2 years ago Surgical History Surgical History No history of previous surgery Social History Social History Smoking status: Never smoker Alcohol use details: Occasionally drinks Gender identity (if verbalized by the patient): Female Exam Narrative: GENERAL: Well-appearing, well-nourished, and in no acute distress. HEAD: Normocephalic, atraumatic. EYES: PERRLA and EOMI. ENT: Nares clear, no rhinorrhea or epistaxis. Mucous membranes moist. Oropharynx without tonsillar hypertrophy exudate or other lesions. NECK: Supple. No adenopathy or masses. CHEST: No respiratory distress. Clear to auscultation. No wheezes rales or rhonchi HEART: Regular rate and rhythm. No murmur heard. Normal peripheral pulses. ABDOMEN: Soft, nontender, nondistended, normal active bowel sounds. MSK: Normal range of motion. No edema. SKIN: Warm, dry, no rash. NEURO: Alert and oriented x4. No focal deficits. PSYCH: Normal mood and affect. Course Vital Signs Vital signs: Vital Signs Temperature 97.7 F 09/08/24 21:00 Pulse Rate 83 09/08/24 21:00 Respiratory Rate 19 09/08/24 21:00 Blood Pressure 112/69 09/08/24 21:00 Pulse Oximetry 99 09/08/24 21:00 Oxygen Delivery Room Air 09/08/24 21:00 Temperature 97.7 F 09/08/24 21:00 Pulse Rate 78 09/09/24 01:42 Respiratory Rate 14 09/09/24 01:42 Blood Pressure 110/64 09/09/24 01:42 Pulse Oximetry 99 09/09/24 01:42 Oxygen Delivery Room Air 09/08/24 21:00 MDM - Fever MDM Narrative Medical decision making narrative: This is a 24-year-old female who presents to the ED for chief complaint of URI symptoms over the past 2-3 days. Vitals are normal. Exam is benign. Viral swabs are negative for influenza, however her son is being seen here and is positive for influenza A. Suspect false negative. Presentation is consistent with influenza. Discussed with patient these results and the utility of Tamiflu. She is opting to not have Tamiflu prescribed today and I feel this is very reasonable. Patient will be discharged in stable condition. Supportive measures discussed and return precautions given. Patient is understanding and agreeable with plan for discharge with PCP follow-up. Lab Data Labs: Lab Results 09/09/24 Range/Units 00:36 Influenza A (RT-PCR) Negative (Negative) Influenza B (RT-PCR) Negative (Negative) RSV (RT-PCR) Negative (Negative) SARS-CoV-2 RNA (RT-PCR) Negative (Negative) Discharge Plan Discharge Clinical Impression: Acute viral syndrome Patient Disposition: Home, Self-Care Condition: Stable Instructions: Antibiotic Form, Influenza (ED) Additional Instructions: Please continue taking TheraFlu and Tylenol 500 mg for your symptom control. If you have any new or worsening symptoms please return to the ER for further evaluation. Patient Language: German Prescriptions: New acetaminophen [Tylenol Extra Strength] 500 mg tablet 500 mg PO Q4-6H PRN (Reason: fever) Qty: 30 0RF No Action fluconazole [Diflucan] 150 mg tablet 150 mg PO Q48H Qty: 2 0RF Rx Instructions: Take 1 tablet now. If you are still having symptoms in 48 hours take the second tablet. Follow-up/Referrals: PHYSICIAN,PSYCHOLOGICAL SCIENCE PROFESSOR [Primary Care Provider] - Stand Alone Forms: Work/School Release IP Time of Disposition: 00:49
[2024-09-09 01:18] LABS: Influenza A QL RT-PCR Negative (Negative); Influenza B QL RT-PCR Negative (Negative); RSV RNA, RT-PCR Negative (Negative); SARS-CoV-2 RNA PCR Negative (Negative)
[2024-09-09 01:42] VITALS: BP 110/64; PULSE 78; RESP 14; O2SAT 99
== END 2024-09-09 01:43 | disposition home or self-care (01) ==
PROVIDERS: Emergency Provider Physician Assistant
DX: B34.9 Viral infection, unspecified (principal); Z20.822 Contact with and (suspected) exposure to COVID-19; J45.909 Unspecified asthma, uncomplicated; Z86.2 Personal history of diseases of the blood and blood-forming organs and certain disorders involving the immune mechanism
CPT/HCPCS: 87637; 99283